=== PATIENT | male | born 1980 | race Caucasian/White ===

== ENCOUNTER 2025-08-06 22:07 | Emergency (ER) | payer BC, SELFPAY ==
--- OUTSIDE RECORDS SUMMARY | 2025-08-06 22:08 | XMS_ITS | Clinical Summary ---
Author Organization [facility] Address [address], [place] [address] Care Team Providers Care State Director Name Role Phone Unassigned, Provider Primary Care Provider Unava ilable Source Comments You are receiving this document as you are listed as the primary care provider,follow-up provider, or the patient has been referred to you for consultation.This is in compliance with the Medicare and[facility] EHR Incentive Program,which states Providers who transition their patient to another setting of careor provider of care or refers their patient to another provider of care shouldprovide summary care record for each transition of care or referral. [facility] Allergies No known active allergies Medications No known medications Active Problems ProblemNoted DateDiagnosed DateIncomplete tear of right rotator cuff08/07/2016 Overview (04/07/2017): Partial thickness right rotator cuff tear Chronic right shoulder pain07/04/2016 Overview (04/07/2017): Right shoulder weakness, cannot rule out progression of rotator cuff tear Biceps tendon tear07/04/2016 Social History Tobacco UseTypesPacks/DayYears UsedDateSmoking Tobacco: NeverSex and Gender InformationValueDate RecordedSex Assigned at BirthNot on fileLegal SexMale 05/25/2012 5:05 AM CDTGender IdentityNot on fileSexual OrientationNot on file Last Filed Vital Signs Vital SignReadingTime TakenCommentsBlood Pressure--Pulse--Temperature-- Respiratory Rate--Oxygen Saturation--Inhaled Oxygen Concentration--Xnchix058.3 kg (230 lb)07/01/2016 3:34 PM OFJWleari519.4 cm (6' 1)07/01/2016 3:34 PM FASHION ADVISER Body Mass Index30.34108/31/2015 3:34 PM FASHION ADVISER Plan of Treatment Health MaintenanceDue DateLast DoneCommentsColon Cancer Screening Plan Due 1978Hep C Screening (Preventive Services)1978HIV Screening (Preventive Services)1994Adult Preventive Visit1996DTaP/Tdap/Td Vaccine (1 - Tdap)1997HepB Vaccine (1)09/15/19973952Zzuqrrnzftq53/31/2014 COVID-19 Vaccine (1 - season)2025Influenza Vaccine (#1)2025 Zoster/Shingles Vaccine (1 of 2)2028HepA VaccineAged OutNo longer eligible based on patient's age to complete this topicHib VaccineAged OutNo longer eligible based on patient's age to complete this topicIPV (Polio) VaccineAged OutNo longer eligible based on patient's age to complete this topicMCV4 Vaccine Aged OutNo longer eligible based on patient's age to complete this topic Meningococcal B VaccineAged OutNo longer eligible based on patient's age to complete this topicPneumococcal VaccineAged OutNo longer eligible based on patient's age to complete this topic Insurance * Guarantor: El Flores TypeRelation to PatientDate of BirthPhone Billing AddressPersonal/SpqlywDdis74/31/1981 ([place]) [address] [place], [place] [id number] Care Teams Team MemberRelationshipSpecialtyStart DateEnd Date Unassigned, Provider [address] [place] [address] PCP - General10/25/00
--- OUTSIDE RECORDS SUMMARY | 2025-08-06 22:08 | XMS_ITS | Clinical Summary ---
Author Organization [employer] Address [address] [place] [address] Care Team Providers Care Recruitment Consultant Name Role Phone Emily Deluca MD Unavailable [phone] Giuseppe Martinez MD Unavailable [phone] Khushi Whitfield DO Primary Care Provider [phone] Allergies No known active allergies Medications MedicationSigDispense QuantityRefillsLast FilledStart DateEnd DateStatus loratadine/pseudoephedrine (ALLERGY RELIEF D ORAL) Take 1 Tablet by mouth once daily.Active fluticasone (50 mcg per actuation) nasal solution (FLONASE) Inhale 1 Dixon in both nostrils once daily.Active sodium chloride (OCEAN) 0.65 % nasal solution Indications:S/P transsphenoidal hypophysectomy (HC)Inhale 2 Sprays in both nostrils 2 times daily if needed for Nasal Dryness. 45 mL 11:27 PM CDT5Active hydrocortisone (CORTEF) 10 mg tablet Indications:Pituitary tumor,S/P transsphenoidal hypophysectomy (HC)Take 2 tablets (20 mg) by mouth in the morning. THEN take 1 tablet (10 mg) in the evening. 270 Tablet 04/29/2025 1:37 PM CDT5Active Additional Information Patient not taking.Reason: not currently, Reported on 08/02/2025 desmopressin (DDAVP) 0.1 mg tablet Indications:Diabetes insipidus (HC)Take 1 tablet (0.1 mg) in the morning, take 2 tablets (0.2 mg) at bedtime. Total 0.3 mg daily. 270 Tablet 04/30/2025 1:04 PM CDT5Active Additional Information Patient taking differently: 0.1 mg Oral BID, Take 1 tablet (0.1 mg) in the morning, take 2 tablets (0.2 mg) at bedtime. Total 0.3 mg daily., Reason: not currently, Reported on 08/02/2025 acetaminophen (TYLENOL EXTRA STRGTH) 500 mg tablet Indications:Acute post-operative painTake 1-2 Tablets (500-1,000 mg) by mouth every 6 hours if needed for Pain, Headache or Temp>101.5F (38.6C) (For mild pain.). Max acetaminophen dose: 4000mg in 24 hrs.5Active cabergoline (DOSTINEX) 0.5 mg tablet Indications:Macroprolactinoma (HC),Medication managementTAKE 2 TABLETS BY MOUTH DAILY 180 Tablet 5Active testosterone 1% (12.5mg/1.25g) (ANDROGEL) 12.5 mg/ 1.25 gram (1 %) glpm GEL Indications:Hypogonadism maleAPPLY TWO PUMPS TOPICALLY TO TO THE AFFECTED AREA ONCE DAILY TO SKIN ON UPPER ARM,CHEST,BACK 150 g 5Active testosterone 1% (12.5mg/1.25g) 12.5 mg/ 1.25 gram (1 %) glpm GEL Indications:Hypogonadism maleAPPLY TWO PUMPS TOPICALLY TO TO THE AFFECTED AREA ONCE DAILY TO SKIN ON UPPER ARM,CHEST,BACK 150 g Discontinued(Reorder (E-cancel not sent)) cabergoline (DOSTINEX) 0.5 mg tablet Indications:Macroprolactinoma (HC),Medication managementTAKE 2 TABLETS BY MOUTH DAILY 180 Tablet Discontinued(Reorder (E-cancel not sent)) Active Problems ProblemNoted DateDiagnosed DatePituitary tumor04/27/2025History of primary jpjaaxpugnaoixwmbwp50/27/2019 Overview (05/12/2019): s/p left superior parathyroidectomy 09/2018 Hypogonadism male07/29/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 3 month postop surveillance. Review 08/02/25 ANW, 04/26/25 [facility] MRI. All other comparisons were done [place] [facility] and are on AV.)08/02/2025 6:40 AM COMPENSATION/BENEFITS SPECIALIST - 08/02/2025 11:59 PM CSTHospital Encounter [facility] [address] [place], [place] [phone] Riana Martin NP S/P transsphenoidal hypophysectomy (HC)08/02/20255077Ynytxs11/06/2025Telephone [facility] [address] [place] [phone] Emily Deluca MD Prior Authorization (testosterone 1% (12.5mg/1.25g) (ANDROGEL) 12.5 mg/ 1.25 gram (1 %) glpm GEL PANOT NEEDED)07/16/2025Refill [facility] [address] [place] [phone] Emily Deluca MD Refill Request (testosterone 1% (12.5mg/1.25g) 12.5 mg/ 1.25 gram (1 %) glpm GEL/cabergoline (DOSTINEX) 0.5 mg tablet)06/13/2025 10:30 AM CDTOrders Only [facility] [address] [place] [address] [place] <No scans attached>06/13/20252839Medutv86/28/2025Telephone [facility] [address] [place] [phone] Emily Deluca MD Xwzgytv3706/07/2025Orders Only [facility] [address] [place] [phone] Emily Deluca MD <No scans attached>06/07/2025Telephone [facility] [address] [place] [phone] Emily Deluca MD 06/06/2025 1:30 PM CDTOrders Only [facility] [address] [place] [address] [place] Lab06/06/20253799Lrgncn78/14/2025 1:00 PM CDTOffice Visit [facility] [address] [facility] [address] [place] [address] Riana Martin NP Post-op (Clinic Appt S/p 04/27/25 Endoscopic transnasal hypophysectomy; possible lumbar drain and fat graft. 1 month f/u)05/28/2025 7:30 AM CDTOffice Visit [facility] [address] [place] [phone] Emily Deluca MD Follow Up (MEN1, Hyperprolactinemia, Macroprolactinoma, Hypogonadism Male, H/O Primary Hyperparathyroidism, Vitamin D Deficiency)05/28/20259834Czhoow33/26/2025 Orders Only [facility] Scanner 1 scan: (1-Ord) ENT SPECIALTY CARE, NASAL ENDOSCOPY, 5005/11/2025Orders Only [facility] Scanner 1 scan: (1-Ord) ENT SPEC CARE, NASAL ENDOSCOPY, 5005/09/2025Telephone [facility] Neuro[facility] [place] [address] [phone] 91 Giuseppe Martinez MD Formfrom Last 3 Months Immunizations ImmunizationAdministration DatesNext SwzZRM7710/21/1995Td (Age >=7 Years) 04/02/2005Td, Preservative Free (age >= 7 Years)04/02/2005Tdap09/20/2018 Family History Medical HistoryRelationNameCommentsHypertensionFatherOtherMaternal Grandfather bipolar diseaseRheum arthritisMotherOtherOtherleukemia in an auntDiabetes Paternal GrandmotherRelationNameStatusCommentsFatherMaternal GrandfatherMother OtherPaternal Grandmother Social History Tobacco UseTypesPacks/DayYears UsedDateSmoking Tobacco: NeverPassive Smoke Exposure: NeverSmokeless Tobacco: Never Tobacco Cessation:Counseling Given: Not Answered Alcohol UseStandard Drinks/WeekCommentsNot Currently0 (1 standard drink = 0.6 oz pure alcohol)nonePHQ-2AnswerDate RecordedPHQ-2 Uftqt847Social ConnectionsAnswerDate RecordedDo you often feel lonely or isolated from those around you?lcohol UseAnswerDate RecordedHow often do you have a drink containing alcohol?verage Number of DrinksNot on file 08/02/2025Frequency of Binge DrinkingNot on file08/02/2025Financial Resource StrainAnswerDate RecordedDifficulty of Paying Living Rypetneo798/27/2025 Difficulty of Paying Living ExpensesNot on file02/09/2025Food InsecurityAnswer Date RecordedDo you worry your food will run out before you are able to buy more?Transportation NeedsAnswerDate RecordedDoes lack of transportation keep you from medical appointments?Does lack of transportation keep you from work, meetings or getting things that you need?1 02/09/2025Housing StabilityAnswerDate RecordedWhat is your housing situation today?UtilitiesAnswerDate RecordedDo you have trouble paying for utilities (for example, heat, electricity, water, phone)?Sex and Gender InformationValueDate RecordedSex Assigned at BirthNot on fileLegal Sex Male08/29/2012 5:23 AM CSTGender IdentityNot on fileSexual OrientationNot on file Last Filed Vital Signs Vital SignReadingTime TakenCommentsBlood Pmelsous153/7408/02/2025 8:13 AM COMPENSATION/BENEFITS SPECIALIST Favhq857808/02/2025 8:13 AM HZIRudgdmkxjce33.6 ??C (97.9 ??F)08/02/2025 8:13 AM CSTRespiratory Oikv961608/02/2025 8:13 AM CSTOxygen Skbibirkqc82%08/02/2025 8:13 AM CSTInhaled Oxygen Concentration--Rzxwnw793.3 kg (245 lb 6.4 oz)08/02/2025 8:13 AM QXHWuatis406.4 cm (6' 1)08/02/2025 8:13 AM CSTBody Mass Index32.38 08/02/2025 8:13 AM COMPENSATION/BENEFITS SPECIALIST Plan of Treatment DateTypeDepartmentCare Team (Latest Contact Info)Chxanysmsbo84/13/2026 7:30 AM CDTOffice Visit [facility] [address] [place] [phone] Emily Deluca MD [address] [place] [address] Health MaintenanceDue DateLast DoneCommentsHIV for age 15-Hepatitis C screening for age 18-7909/15/1996Hepatitis B series for 19+ (1 of 3 - 19+ 3- dose series)1997Depression screening for age 12+, 08/21/2015Colonoscopy through age 750/4COVID-19 vaccine series ( - 2024- season)2025Influenza Vaccine (#1)5BMI (ht and wt on same day) for age 18+6110/03/2024, 05/29/2025, 02/09/2025, Additional history existsLipids for age 45-7507/, 06/20/2018Tetanus booster , 04/02/2005, 04/02/2005Pneumococcal series for age 6-49Aged OutNo longer eligible based on patient's age to complete this topic Medical Devices ImplantedTypeAreaManufacturerDevice IdentifierShelf Expiration DateModel / Serial / LotGraft Dural 1x1in Duramatrix Suturable Bovine - [id number] Implanted:Qty: 1 on 04/27/2025 by Giuseppe Martinez MD at [facility] Zlfevgcbprezykvmyjg29/31/[id number] / / [id number] Procedures Procedure NamePriorityDate/TimeAssociated DiagnosisCommentsMR HEAD BRAIN PITUITARY PVTAkdtjuv87/18/2025 7:57 AM COMPENSATION/BENEFITS SPECIALIST S/P transsphenoidal hypophysectomy (HC) SODIUMAdd On06/13/2025 10:24 AM CDT Hypernatremia CORTISOL TJUVIRzfipkn42/29/2025 10:24 AM CDT Macroprolactinoma (HC) Medication management SODIUMAdd On06/06/2025 1:37 PM CDT Macroprolactinoma (HC) Medication management CORTISOL LBVUUVweqdez02/22/2025 1:37 PM CDT Macroprolactinoma (HC) Medication management BASIC METABOLIC CYUXXIsvnety87/13/2025 8:17 AM CDT Macroprolactinoma (HC) Medication management VGBAJBWKJIjmikkh97/13/2025 8:17 AM CDT Hyperprolactinemia (HC) Macroprolactinoma (HC) Medication management EAJQxmhcul64/13/2025 8:17 AM CDT Macroprolactinoma (HC) TESTOSTERONE,KENCEXwiiifq80/13/2025 8:17 AM CDT Macroprolactinoma (HC) Hypogonadism male Medication management T4,LGPOAtjillx18/13/2025 8:17 AM CDT Macroprolactinoma (HC) SCAN-RIAGVYJCP21/26/2025 12:00 AM CDT SCAN-FDLXSMSWQ68/26/2025 12:00 AM CDT LIPID OVTPMWlyrdqq89/24/2022 8:15 AM CDT Hypogonadism male Macroprolactinoma (HC) Medication management from Last 3 Months or Most Recently Relevant to Health Maintenance Results * MR HEAD BRAIN PITUITARY WWO (08/02/2025 7:57 AM COMPENSATION/BENEFITS SPECIALIST)Anatomical Region LateralityModalityBRAIN, HEADMagnetic ResonanceSpecimen (Source)Anatomical Location / LateralityCollection Method / VolumeCollection TimeReceived Time 08/02/2025 11:54 AM COMPENSATION/BENEFITS SPECIALIST Impressions 08/02/2025 11:54 AM COMPENSATION/BENEFITS SPECIALIST 1. 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 The infundibulum remains visualized and deviated slightly towards the left. Optic chiasm remains decompressed. 2. Remainder of the extensive tumor is unchanged. 3. Notable stable tumor extending into the right jugular foramen. Stable nonocclusive small fillingdefect at the confluence of the right sigmoid dural venous sinus and jugular vein which may represent chronic thrombus or extension of tumor. 4. No new abnormal enhancement elsewhere Dictated by Jr Ventura MD @ 08/02/2025 11:54:35 AM (Electronically Signed) Narrative 08/02/2025 11:54 AM COMPENSATION/BENEFITS SPECIALIST For Patients: As a result of the Cures Act, medical imaging exams and procedure reports are released immediately into your electronic medical record. You may view this report before your referring provider. If you have questions, please contact your health care provider. INDICATION: Pituitary tumor. Status post and sphenoidal hypo facetectomy. COMPARISON: 04/27/2025 and 04/26/2025. TECHNIQUE: Multiplanar T1, T2, FLAIR and diffusion-weighted imaging. Post gadolinium T1 weighted sequences. Additional pre and post them sequences of the sella. FINDINGS: Compared to the previous exam, stable postoperative changes of transsphenoidal approach for partialresection of a giant invasive sellar and suprasellar mass. As seen on the intraoperative exam, there is stable the bulk of the sellar suprasellar component of the tumor. The optic chiasm remains decompressed. Infundibulum is visualized and deviated slightly towards the left. Anteriorly, small amount of residual tumor which abuts the right pre chiasmatic optic nerve. Stable extensive tumor extending into the bilateral cavernous sinuses, posterior sphenoid sinuses, pre pontine cistern, clivus, and occipital condyles. There is abutment but no encasement of the basilar artery. Complete encasement of the cavernous segments of both intracranial ICAs but no evidence of luminal narrowing. Stable focal extension of tumor along the medial left temporal lobe with peritumoral cystic change. Tumor extends across foramen ovale bilaterally into the skullbase. Anteriorly, tumor also extends into the orbital apices and bilateral pterygopalatine fossa, greateron the right. Tumor also extends into the right jugular foramen. There is notable stable nonocclusive filling defect at the confluence of the right sigmoid dural venous sinus and jugular vein (series 14, images 201-35; series 16, image 35) consistent with thrombus or tumor extension. No new abnormal enhancement or enhancing lesions elsewhere. No intracranial hemorrhage. No abnormal ventricular dilatation. Intracranial vascular flow voids are grossly preserved. No restricted diffusion to suggest acute ischemia. No new abnormal enhancement or enhancing lesions within the brain parenchyma. Visualized paranasal sinuses mastoid air cells are unremarkable. Procedure Note Jr Ventura MD, PhD - 08/02/2025 For Patients: As a result of the Cures Act, medical imagingexams and procedure reports are released immediately into your electronicmedical record. You may view this report before your referring provider.If you have questions, please contact your health care provider. INDICATION: Pituitary tumor. Status post and sphenoidal hypo facetectomy. COMPARISON: 04/27/2025 and 04/26/2025. TECHNIQUE: Multiplanar T1, T2, FLAIR and diffusion-weighted imaging. Post gadoliniumT1 weighted sequences. Additional pre and post them sequences of thesella. FINDINGS: Compared to the previous exam, stable postoperative changes oftranssphenoidal approach for partial resection of a giant invasive sellarand suprasellar mass. As seen on the intraoperative exam, there is stablethe bulk of the sellar suprasellar component of the tumor. The opticchiasm remains decompressed. Infundibulum is visualized and deviatedslightly towards the left. Anteriorly, small amount of residual tumorwhich abuts the right pre chiasmatic optic nerve. Stable extensive tumor extending into the bilateral cavernous sinuses,posterior sphenoid sinuses, pre pontine cistern, clivus, and occipitalcondyles. There is abutment but no encasement of the basilar artery. Complete encasement of the cavernous segments of both intracranial ICAsbut no evidence of luminal narrowing. Stable focal extension of tumor along the medial left temporal lobe with peritumoral cystic change. Tumor extends across foramen ovale bilaterally into the skullbase. Anteriorly, tumor also extends into the orbital apices and bilateral pterygopalatine fossa, greater on the right. Tumor also extends into the right jugular foramen. There is notable stable nonocclusive filling defect at the confluence of the right sigmoid duralvenous sinus and jugular vein (series 14, images 20 1-35; series 16, image35) consistent with thrombus or tumor extension. No new abnormal enhancement or enhancing lesions elsewhere. No intracranial hemorrhage. No abnormal ventricular dilatation.Intracranial vascular flow voids are grossly preserved. No restricted diffusion to suggest acute ischemia. No new abnormal enhancement or enhancing lesions within the brainparenchyma. Visualized paranasal sinuses mastoid air cells are unremarkable. IMPRESSION: 1. 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 The infundibulumremains visualized and deviated slightly towards the left. Optic chiasmremains decompressed. 2. Remainder of the extensive tumor is unchanged. 3. Notable stable tumor extending into the right jugular foramen. Stable nonocclusive small filling defect at the confluence of the right sigmoiddural venous sinus and jugular vein which may represent chronic thrombusor extension of tumor. 4. No new abnormal enhancement elsewhere Dictated by Jr Ventura MD @ 08/02/2025 11:54:35 AM (Electronically Signed) Authorizing ProviderResult TypeResult StatusAlicietienne Martin NPMRFinal Result * CORTISOL TOTAL (06/13/2025 10:24 AM CDT) Only the most recent of2 resultswithin the time period is included. ComponentValueRef RangeTest MethodAnalysis TimePerformed AtPathologist Signature CORTISOL, TOTAL21.2mcg/dL06/14/2025 5:14 AM CDTQUEST DIAGNOSTICSComment: The Cortisol result may be decreased on average 10-20% relative to results previously obtained with this method due to a recent quality improvement made in March 2025 by the reagent miter saw operator. Reference Range: For 8 a.m.(7-9 a.m.) Specimen: 4.0-22.0 Reference Range: For 4 p.m.(3-5 p.m.) Specimen: 3.0-17.0 ??* Please interpret above results accordingly * Specimen (Source)Anatomical Location / LateralityCollection Method / Volume Collection TimeReceived TimeBloodBLOOD SPECIMEN / UnknownQuest Collect / Unknown 06/13/2025 10:24 AM CDT1 10:24 AM CDT Narrative Authorizing ProviderResult TypeResult StatusEmily Deluca MDCHEMISTRY Final ResultPerforming OrganizationAddressCity/State/ZIP CodePhone Number [facility] [address] [place] [address], * SODIUM (06/13/2025 10:24 AM CDT) Only the most recent of2 resultswithin the time period is included. ComponentValueRef RangeTest MethodAnalysis TimePerformed AtPathologist Signature [id number] - 146 mmol/L1 2:16 AM CDTQUEST DIAGNOSTICSSpecimen (Source)Anatomical Location / LateralityCollection Method / VolumeCollection TimeReceived TimeBloodBLOOD SPECIMEN / UnknownQuest Collect / Uijsnnr5206/13/2025 10:24 AM CDT1 10:24 AM CDT Narrative Authorizing ProviderResult TypeResult StatusEmily Deluca MDCHEMISTRY Final ResultPerforming OrganizationAddressty/State/ZIP CodePhone Number [facility] [address] [place] [address], [place] [phone] * TSH (05/28/2025 8:17 AM CDT)ComponentValueRef RangeTest MethodAnalysis Time Performed AtPathologist SignatureTSH0.790.40 - 4.50 mIU/L1 6:03 AM CDTQUEST DIAGNOSTICSSpecimen (Source)Anatomical Location / Laterality Collection Method / VolumeCollection TimeReceived TimeBloodBLOOD SPECIMEN / UnknownQuest Collect / Kakimxl5005/28/2025 8:17 AM CDT1 8:17 AM CDT Narrative Authorizing ProviderResult TypeResult StatusEmily Deluca MDCHEMISTRY Final ResultPerforming OrganizationAddressCity/State/ZIP CodePhone Number [facility] [address] [place] [address], [place] [phone] * T4,FREE (05/28/2025 8:17 AM CDT)ComponentValueRef RangeTest MethodAnalysis TimePerformed AtPathologist SignatureT4, FREE1.00.8 - 1.8 ng/dL05/29/2025 6:03 AM CDTQUEST DIAGNOSTICSSpecimen (Source)Anatomical Location / Laterality Collection Method / VolumeCollection TimeReceived TimeBloodBLOOD SPECIMEN / UnknownQuest Collect / Gxikqul4905/28/2025 8:17 AM CDT1 8:17 AM CDT Narrative Authorizing ProviderResult TypeResult StatusEmily Deluca MDCHEMISTRY Final ResultPerforming OrganizationAddressty/State/ZIP CodePhone Number [facility] [address] [place] [address], * (ABNORMAL) TESTOSTERONE,TOTAL (05/28/2025 8:17 AM CDT)ComponentValueRef Range Test MethodAnalysis TimePerformed AtPathologist SignatureTESTOSTERONE, TOTAL, MS47(L)250 - 1100 ng/dL06/01/2025 1:43 PM CDTQUEST DIAGNOSTICSComment: Men with clinically significant hypogonadal symptoms and testosterone values repeatedly in the range of the 200-300 ng/dL or less, may benefit from testosterone treatment after adequate risk and benefits counseling. For additional information, please refer to https://education.uromovie/faq/TotalTestosteroneLCMSMS (This link is being provided for informational/educational purposes only.) (Note) This test was developed and its analytical performance characteristics have been determined by [employer]. It has not been cleared or approved by the FDA. This assay has been validated pursuant to the CLIA regulations and is used for clinical purposes. [facility] [address] [address],[address] [facility] [address] Kalen Pereira MD, PhD Specimen (Source)Anatomical Location / LateralityCollection Method / Volume Collection TimeReceived TimeBloodBLOOD SPECIMEN / UnknownQuest Collect / Unknown 05/28/2025 8:17 AM CDT1 8:17 AM CDT Narrative Authorizing ProviderResult TypeResult StatusEmily Deluca MDCHEMISTRY Final ResultPerforming OrganizationAddressCity/State/ZIP CodePhone Number [facility] [facility] [address], * (ABNORMAL) PROLACTIN (05/28/2025 8:17 AM CDT)ComponentValueRef RangeTest MethodAnalysis TimePerformed AtPathologist YtfuipovcEWMWNULXL46339.0(H)2.0 - 18.0 ng/mL05/30/2025 4:13 PM CDTQUEST DIAGNOSTICSComment: Results verified by repeat analysis on dilution. Specimen (Source)Anatomical Location / LateralityCollection Method / Volume Collection TimeReceived TimeBloodBLOOD SPECIMEN / UnknownQuest Collect / Unknown 05/28/2025 8:17 AM CDT1 8:17 AM CDT Narrative Authorizing ProviderResult TypeResult StatusEmily Deluca MDSEND OUTS Final ResultPerforming OrganizationAddressCity/State/ZIP CodePhone Number [facility] [address] [place] [address], * (ABNORMAL) BASIC METABOLIC PANEL (05/28/2025 8:17 AM CDT)ComponentValueRef RangeTest MethodAnalysis TimePerformed AtPathologist DqdxygmlqPHWQGY829846 - 146 mmol/L1 4:24 AM CDTQUEST DIAGNOSTICSPOTASSIUM4.13.5 - 5.3 mmol/L 05/29/2025 4:24 AM CDTQUEST DIAGNOSTICSCARBON GPJYBGY2450 - 32 mmol/L 05/29/2025 4:24 AM CDTQUEST LHMYZKBUNMQKRJXWJK260(H)65 - 99 mg/dL05/29/2025 4:24 AM CDTQUEST DIAGNOSTICSComment: ? Fasting reference interval For someone without known diabetes, a glucose value between 100 and 125 mg/dL is consistent with prediabetes and should be confirmed with a follow-up test. CALCIUM9.28.6 - 10.3 mg/dL05/29/2025 4:24 AM CDTQUEST DIAGNOSTICSCREATININE0.99 0.60 - 1.29 mg/dL05/29/2025 4:24 AM CDTQUEST DIAGNOSTICSBUN/CREATININE RATIOSEE NOTE:6 - 22 (calc)05/29/2025 4:24 AM CDTQUEST DIAGNOSTICSComment: ?? Not Reported: BUN and Creatinine are within ?? reference range. ? EGFR95> OR = 60 mL/min/1.27x08605/29/2025 4:24 AM CDTQUEST DIAGNOSTICSUREA NITROGEN (BUN)127 - 25 mg/dL05/29/2025 4:24 AM CDTQUEST DIAGNOSTICSELECTROLYTE MKLUFIW84 - 17 mmol/L (calc)05/29/2025 4:24 AM CDTQUEST IAYGZQMVJDTOOYEUVFK69898 - 110 mmol/L1 4:24 AM CDTQUEST DIAGNOSTICSSpecimen (Source)Anatomical Location / LateralityCollection Method / VolumeCollection TimeReceived TimeBlood BLOOD SPECIMEN / UnknownQuest Collect / Wbkkjqi9405/28/2025 8:17 AM CDT1 8:17 AM CDT Narrative Authorizing ProviderResult TypeResult StatusAnne Macy Deluca MDCHEMISTRY Final ResultPerforming OrganizationAddressCity/State/ZIP CodePhone Number [facility] [place] [facility] [address], * SCAN-ENDOSCOPY (05/11/2025 12:00 AM CDT) Narrative Authorizing ProviderResult TypeResult StatusScannerOTHERFinal Result * SCAN-ENDOSCOPY (05/11/2025 12:00 AM CDT) Narrative Authorizing ProviderResult TypeResult StatusScannerOTHERFinal Result * (ABNORMAL) LIPID PANEL (04/08/2022 8:15 AM CDT)ComponentValueRef RangeTest MethodAnalysis TimePerformed AtPathologist SignatureCHOLESTEROL,[id number] - 199 mg/dL04/08/2022 5:22 PM [facility] NUUTVKRAPJSWC115(H)<150 mg/dL04/08/2022 5:22 PM [facility]- [facility] LABORATORYHDL EJVAXCYUSTB39(L)>40 mg/dL04/08/2022 5:22 PM [facility]-CENTRAL LABORATORYNON-HDL [id number](H)<145 mg/dl 04/08/2022 5:22 PM [facility]CENTR[facility] LABORATORYCHOL/HDL RATIO5.70(H)<4.50004/08/2022 5:22 PM [facility] LABORATORYLDL JQXPYACFNKL41<=130 mg/dL04/08/2022 5:22 PM [facility]-CENTRAL LABORATORYVLDL CRTHBNYXSQL76(H)<=30 mg/dL04/08/2022 5:22 PM [facility]-CENTRAL LABORATORYPROVIDER ORDERED STATUSRANDOM 04/08/2022 5:22 PM [facility]ENTRAL LABORATORYSpecimen (Source)Anatomical Location / LateralityCollection Method / VolumeCollection TimeReceived TimeBloodBLOOD SPECIMEN / UnknownVenipuncture / Txxpyqm7304/08/2022 8:15 AM CDT04/08/2022 8:21 AM CDT Narrative Authorizing ProviderResult TypeResult StatusEmily Deluca MDCHEMISTRY Final ResultPerforming OrganizationAddressCity/State/ZIP CodePhone Number [facility] [address] [place] [address], from Last 3 Months or Most Recently Relevant to Health Maintenance Insurance * Guarantor: MARIBETH Mcintosh TypeRelation to PatientDate of PhoneBilling AddressOhio[facility]/OussKptwc12/29/1971 [place] [address] Advance Directives * Full Code (Latest Code Status on File) Date ActivatedDate InactivatedComments04/27/2025 7:02 AM04/30/2025 3:57 PMQuestion AnswerCommentsCode Status Discussion:* Reviewed Preferences * Full Code Date ActivatedDate InactivatedComments09/28/2018 5:34 AM09/28/2018 1:21 PMQuestion AnswerCommentsCode Status Discussion:* Discussed Care Teams Team MemberRelationshipSpecialtyStart DateEnd Date Nahid, Khushi DO Ariella [address] [place] [address] [facility] Emily Deluca MD Endocrinology04/08/15 Giuseppe Martinez MD [address] [address] Surgery - Neurological12/20/23
--- OUTSIDE RECORDS SUMMARY | 2025-08-06 22:09 | XMS_ITS | Patient Health Record ---
Author Organization [facility] Address [address] [place] [address] Phone [phone] Care Team Providers Care Professional Athlete Name Role Phone Khushi Whitfield Primary Care Provider Unavailalbaro MCNEIL MD, VITO Unavailable Giuseppe Martinez Unavailable Unavailable Dominic Guy, [facility]AVan Unavailable [phone] Allergies No Known Allergies Reason For Referral No Information Medications Medication SIG (Take, Route, Frequency, Duration) Notes Start Date End Date Diagnosis (ICD Code) Status Flonase 50 MCG/DOSE Suspension 2 spray i n each nostril Nasally Once a day; Duration: 30 days 5Chronic rhinitis (ICD_10 - J31.0)Not-TakingDeep Sea Nasal [place] 0.65 % SolutionNasal; Duration: 30 DaysActiveCabergoline 0.5 MG TabletOral; Duration: 88 DaysActive Social History Tobacco Use: Social History Observation Description Date Details (start date - stop date) Never Smoker NA - NA Sex Observation Social History Observation Description Sex Observation Male Social History Tobacco Use:Social InfoQuestionAnswerNotesTobacco Control (Standard)Tobacco use: Nonsmoker Problems Problem Type SNOMED Code ICD Code Dates Problem Status W/U Sta tus Risk Notes Problem Chronic rhinitis (80791801) Chronic rhinitis (J31.0) Added On:04/04/2025 Active confirmed ProblemSensorineural hearing loss, bilateral (160083377)Bilateral sensorineural hearing loss (H90.3) Added On:04/04/2025 ActiveconfirmedProblemPituitary tumor (937290310)Pituitary tumor (D49.7) Added On:04/04/2025 ActiveconfirmedProblemPituitary adenoma (529626979)Pituitary adenoma (D35.2) Added On:05/14/2025 Activeconfirmed Vital Signs Vital Sign Value Notes Appt Date Height-cm 185.42 cm 05/11/2025Weight-kg108.86 kg05/11/20250740Wshwdj83 in05/11/20251662Ogfjrv928 lbs 05/11/2025BMI31.66 kg/m205/11/2025 Procedures Procedure Date Ordered Date Performed Result Body Sit e Surgery 05/02/2025 04/27/2025 04-27-25 Encounters Date Time Type Facility Location Provider Diagnosis 04/04/20 02:45 PM New Patient Visit Complex ([address]) [facility] [place] [address] [place] [address] VITO KHABIE Pituitary tumor D49.7 ; Chronic rhinitis J31.0 and Bilateral sensorineural hearing loss H90.3 04/04/20 03:00 PM Office Visit [facility] [place] [address] [facility] [address] [place] [address] Van Buttinaro Pituitary tumor D49.7 and Bilateral sensorineural hearing loss H90.3 04/27/20 08:45 AM Office Visit [facility] [address] [place], [place] [id number] VITO KIERSTENABIE 502:15 PMOffice VisitEar [facility] [place] [address]BCGOIK KHABIE Pituitary tumor D49.7 Assessments Encounter Date Diagnosis (ICD Code) Assessment Notes Treat ment Notes Section Notes 04/04/2025 Pituitary tumor (ICD-10 - D49.7) Patient has a large pituitary tumor, prolactinoma, 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 At this point he is scheduled for surgery with Dr. Martinez in a few weeks. We discussed in detail the risk, benefits and alternativesof surgery as well as reasonable expectations, understand our goal is to debulk the tumor and is unlikely to get gross resection. He understands that there is risk to the carotid arteries optic nerves, etc. we also discussed nosebleeds etc. He does have a deviated septum I do not think we will haveto deal with that if we do would have to leave splints in place as well. He also has history of chronic rhinitis and medical had started on some Flonase so we can discuss at that topping or not when I see him with the postop. Finally he does have significant bilateral sensorineural hearing loss was very obvious during examination today, strongly recommend consideration of hearing aids and he was given information regarding that as well. If he has further problems he will let me know otherwise I will see him in a few weeks 04/04/2025ilateral sensorineural hearing loss (ICD-10 - H90.3)04/04/2025 Pituitary tumor (ICD-10 - D49.7)05/11/2025Pituitary tumor (ICD-10 - D49.7) Patient doing well postoperatively, he will continue on the saline nasal spray several times a day,avoid nose blowing for another week or so. If he has further problems he will let me know. Recall previously was having issues with chronic rhinitis he can go ahead and start the Flonase again now. Francisco just see him back as xhhdna8204/04/2025hronic rhinitis (ICD-10 - J31.0) Patient has a large pituitary tumor, prolactinoma, 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 At this point he is scheduled for surgery with Dr. Martinez in a few weeks. We discussed in detail the risk, benefits and alternativesof surgery as well as reasonable expectations, understand our goal is to debulk the tumor and is unlikely to get gross resection. He understands that there is risk to the carotid arteries optic nerves, etc. we also discussed nosebleeds etc. He does have a deviated septum I do not think we will haveto deal with that if we do would have to leave splints in place as well. He also has history of chronic rhinitis and medical had started on some Flonase so we can discuss at that topping or not when I see him with the postop. Finally he does have significant bilateral sensorineural hearing loss was very obvious during examination today, strongly recommend consideration of hearing aids and he was given information regarding that as well. If he has further problems he will let me know otherwise I will see him in a few weeks 04/04/2025ilateral sensorineural hearing loss (ICD-10 - H90.3) Patient has a large pituitary tumor, prolactinoma, 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 At this point he is scheduled for surgery with Dr. Martinez in a few weeks. We discussed in detail the risk, benefits and alternativesof surgery as well as reasonable expectations, understand our goal is to debulk the tumor and is unlikely to get gross resection. He understands that there is risk to the carotid arteries optic nerves, etc. we also discussed nosebleeds etc. He does have a deviated septum I do not think we will haveto deal with that if we do would have to leave splints in place as well. He also has history of chronic rhinitis and medical had started on some Flonase so we can discuss at that topping or not when I see him with the postop. Finally he does have significant bilateral sensorineural hearing loss was very obvious during examination today, strongly recommend consideration of hearing aids and he was given information regarding that as well. If he has further problems he will let me know otherwise I will see him in a few weeks Plan Of Treatment No Information Insurance Providers Payer Name Payer Address Payer Phone Subscriber Number Group Number Insured Name Patient Relationship to Insured Coverage Start Date Coverage End Date [place] [address] [address] [place] [address] [id number] El Flores Self - patient is the insured
[2025-08-06 22:23] VITALS: BP 163/91; PULSE 89; RESP 24; TEMP 36.7; O2SAT 98; BMI 32.2
--- NOTE | 2025-08-06 22:47 | CRLHL7_ITS ---
For Patients: As a result of the Century Cures Act, medical imaging exams and procedure reports are released immediately into your electronic medical record. You may view this report before your referring provider. If you have questions, please contact your health care provider. INDICATION: Right flank pain. TECHNIQUE: CT abdomen and pelvis without contrast. COMPARISON: None. FINDINGS: Lower chest: Unremarkable. Liver: Normal in size and attenuation. No suspicious masses. Gallbladder and bile ducts: No stones or inflammation. No biliary dilatation. Pancreas: Unremarkable. No mass or inflammation. Spleen: Normal in size. No masses. Adrenal glands: Normal in size. No nodules. Kidneys: Punctate nonobstructing left nephrolith. 3 mm stone at the right uterovesicular junction with associated mild proximal hydroureteronephrosis. No left-sided hydronephrosis. No suspicious mass. GI tract: Unremarkable. Normal in caliber. No sign of mass or inflammation. Normal appendix. Vasculature: Abdominal aorta is normal in caliber. Lymph nodes: No lymphadenopathy. Peritoneum/Abdominal Wall: Small fat-containing umbilical hernia. No free air or significant free fluid. Pelvis: Unremarkable. No pelvic masses. Bones: Unremarkable for age. IMPRESSION: 3 mm stone at the right ureterovesicular junction with associated mild proximal hydroureteronephrosis. Please note that all CT scans at this facility use dose modulation, iterative reconstruction, and/or weight-based dosing when appropriate to reduce radiation dose to as low as reasonably achievable. Dictated by Giuseppe Brown MD @ 08/07/2025 12:20:37 AM (Electronically Signed)
--- NOTE | 2025-08-06 22:47 | ED.GENADULT ---
HPI - General Adult General Date Seen: 08/06/25 Chief complaint: Flank Pain Stated complaint: possible kidney stone Time Seen by Provider: 08/06/25 22:44 Source: patient, family and RN notes reviewed Mode of arrival: ambulatory Limitations: no limitations History of Present Illness HPI narrative: Mr. Flores is a very pleasant 44-year-old gentleman with known history of kidney stones, recent surgery for debulking of brain tumor who comes to the emergency room with complaints of right flank and right lower quadrant pain. Patient notes the onset of this earlier this evening right suddenly. It is associated with vomiting and difficulty finding a comfortable position. Notes that leading up to this pain he did have intermittent episodes of urinary urgency. He did not see blood in his urine. He has not had fever or chills. Moving around seems to help his pain somewhat. Initially the pain was in his right flank it is now migrated down to his right lower quadrant. Related Data Home Medications ?Medication ?Instructions ?Recorded ?Confirmed cabergoline 0.5 mg tablet 1.5 mg PO DAILY 05/18/22 08/06/25 Previous Rx's ?Medication ?Instructions ?Recorded hydrocodone 5 mg-acetaminophen 325 1 tab PO Q4-6H PRN pain #10 tabs 08/07/25 mg tablet tamsulosin 0.4 mg capsule 0.4 mg PO DAILY #14 caps 08/07/25 Allergies Allergy/AdvReac Type Severity Reaction Status Date / Time No Known Drug Allergies Allergy Verified 08/06/25 22:30 Review of Systems Status of ROS: Reports: 6 or more systems reviewed and unremarkable except as noted in History and below Const: Denies: fever or chills Cardio: Denies: chest pain Resp: Denies: cough GI: Reports: abdominal pain, nausea, vomiting and heartburn; Denies: diarrhea or constipation : Reports: urinary frequency and urinary urgency; Denies: painful urination or blood in urine Musculo: Reports: back pain PFSH PFSH Social History Smoking Status: Never smoker Exam Narrative: Exam Narrative: Alert and oriented. Frustrated with his discomfort. External ears eyes nose clear. Mentation and speech is normal. Heart with regular rate and rhythm and lungs are clear. Abdomen is soft. Positive for CVA tenderness to percussion. Moving all extremities. Const: Vital Signs, click to edit/add: Vital Signs - 24 hr 08/06/25 22:23 Temperature 98.0 F Pulse Rate [Pulse Oximeter] 89 Respiratory Rate 24 Blood Pressure [Ri ght Upper Arm] 163/91 H Pulse Oximetry 98 Oxygen Delivery Me thod Room Air Documenting provider has reviewed patient's vital signs: yes Course Course ED Course: Differential diagnosis includes but is not limited to ureteral colic/nephrolithiasis, pyelonephritis, muscular strain. At this time will order IV, Toradol 15 mg morphine 4 mg and Zofran 4 mg as well as 500 mL of normal saline. Will check CBC and comprehensive panel. Urinalysis is also ordered at this time. Reevaluation(s) Reevaluation #1: Due to high ED volume patient was seen in the hallway. He is pacing very frustrated and I do find nursing staff to try to place IV is quickly as possible. Patient appears much improved after medications. Reevaluation #2: CT shows a 3 mm stone at the right UVJ. Mild hydro is noted. Patient's pain appears to be coming back. Will give him Dilaudid 0.5 mg IV x1. Currently awaiting urinalysis as he has had recent indwelling catheter during surgery for pituitary adenoma. This was removed prior to discharge. Vital Signs Vital signs: Initial Vital Signs Temperature 98.0 F 08/06/25 22:23 Temperature Source Temporal Artery Scan 08/06/25 22:23 Pulse Rate 89 08/06/25 22:23 Respiratory Rate 24 08/06/25 22:23 Blood Pressure 163/91 H 08/06/25 22:23 Blood Pressure Mean 115 H 08/06/25 22:23 Blood Pressure Position Sitting 08/06/25 22:23 Pulse Oximetry 98 08/06/25 22:23 Oxygen Delivery Method Room Air 08/06/25 22:23 Vital Signs Temperature 98.0 F 08/06/25 22:23 Pulse Rate 89 08/06/25 22:23 Respiratory Rate 24 08/06/25 22:23 Blood Pressure 163/91 H 08/06/25 22:23 Pulse Oximetry 98 08/06/25 22:23 Oxygen Delivery Method Room Air 08/06/25 22:23 Temperature 98.0 F 08/06/25 22:23 Pulse Rate 89 08/06/25 22:23 Respiratory Rate 24 08/06/25 22:23 Blood Pressure 163/91 H 08/06/25 22:23 Pulse Oximetry 98 08/06/25 22:23 Oxygen Delivery Method Room Air 08/06/25 22:23 Medications Administered Medications: Generic Name Dose Route Start Last Admin Trade Name Freq PRN Reason Stop Dose Admin Hydromorphone HCl 0.5 mg 08/07/25 00:35 08/07/25 00:51 Hydromorphone 0.5 Mg/0.5 Ml Inj IVP 08/07/25 00:36 0.5 mg ONCE ONE Administration Tamsulosin HCl 0.4 mg 08/07/25 00:41 08/07/25 01:02 Tamsulosin Hcl 0.4 Mg Capsule PO 08/07/25 00:42 0.4 mg ONCE ONE Administration Discontinued Medications Generic Name Dose Route Start Last Admin Trade Name Freq PRN Reason Stop Dose Admin Sodium Chloride 500 mls @ 500 mls/hr 08/06/25 22:47 08/07/25 00:15 0.9 % Sodium Chloride 500 Ml IV 08/06/25 23:46 Infused .Q1H CORNELIUS Infusion Ketorolac Tromethamine 15 mg 08/06/25 22:47 08/06/25 23:13 Ketorolac 15 Mg/Ml Inj IVP 08/06/25 22:48 15 mg ONCE ONE Administration Morphine Sulfate 4 mg 08/06/25 22:47 08/06/25 23:13 Morphine 4 Mg/Ml Inj IVP 08/06/25 22:48 4 mg ONCE ONE Administration Ondansetron HCl 4 mg 08/06/25 22:47 08/06/25 23:13 Ondansetron 2 Mg/Ml Inj IVP 08/06/25 22:48 4 mg ONCE ONE Administration Medical Decision Making MDM Narrative Medical decision making narrative: 1. Ureteral colic with nephrolithiasis-patient noted to have a 3 mm stone at the right UVJ. Mild hydro is noted. Urinalysis without evidence of UTI but will be sent for culture as patient has had recent catheter after surgery. Patient had Toradol, morphine and last dose of pain medicine was delighted. Is feeling much better. No evidence of further vomiting in the ED after receiving Zofran. Patient will be discharged home with Toradol 10 mg Q 8 hours p.r.n. not to exceed 5 days 20. Via instant meds. For pain not relieved by Toradol we will use [place] 5/325 1-2 tabs p.o. Q 6 4-6 hours p.r.n. pain 10. Unfortunately this was not in our [facility] med[facility] machine and thus this prescription was sent to the pharmacy. In lieu of [place] will use Percocet 5/325 1 tab p.o. Q 4-6 hours p.r.n. 4. In instant meds. Finally Zofran 4 mg ODT q.8 hours p.r.n. 10. With no refills. Flomax ordered in the ED but declined by patient at this time. He will take it when he gets home. Additional Flomax 0.4 mg p.o. daily 14. Sent to the pharmacy. 2. Disposition-home at this time. Return for worsening symptoms and as needed especially fever. Strain urine. If pain continues and stone has not passed will need to follow-up with primary clinic for referral to Urology. Medical Records Medical records reviewed: Yes I reviewed the patient's medical records Lab Data Lab results reviewed: Yes I reviewed the patient's lab results Labs: Lab Results 08/06/25 08/07/25 Range/Units 23:00 00:19 WBC 10.88 (4.50-11.00) K/uL RBC 4.91 (4.30-5.90) m/uL Hgb 13.2 L (13.5-17.5) gm/dL Hct 40.5 (37.0-53.0) % MCV 83 (80-100) fL MCH 27 (26-34) pg MCHC 33 (32-36) gm/dL RDW Coeff of Real 14.4 (11.5-15.5) % Plt Count 307 (140-440) K/uL Neut % (Auto) 66.6 (42.0-72.0) % Lymph % (Auto) 23.0 (20-44) % Frederick % (Auto) 8.8 (0.0-11.0) % Eos % (Auto) 0.8 (0.0-7.0) % Baso % (Auto) 0.2 (0.0-3.0) % Neut # (Auto) 7.24 H (1.7-7.0) K/uL Lymph # (Auto) 2.50 (0.90-2.90) K/uL Frederick # (Auto) 1.00 H (0.00-0.90) K/UL Eos # (Auto) 0.09 (0.00-0.50) K/uL Baso # (Auto) 0.02 (0.00-0.30) K/uL Abs Immat Gran (auto) 0.07 (0.00-0.30) K/uL Imm/Tot Granulo (auto) 0.6 % Sodium 140 (135-149) mmol/L Potassium 3.9 (3.6-5.1) mmol/L Chloride 99 (96-114) mmol/L Carbon Dioxide 31 (20-32) mmol/L Anion Gap 10 (7-15) mEq/L BUN 15 (5-24) mg/dL Creatinine 1.1 (0.5-1.5) mg/dL Estimated Creat Clear 94.83 Estimated GFR 84 ml/min Glucose 120 H (60-115) mg/dL Calcium 9.1 (8.4-10.6) mg/dL Total Bilirubin 0.3 (0.1-1.5) mg/dL AST 27 (12-35) U/L ALT 35 (4-50) U/L Alkaline Phosphatase 84 (40-150) U/L Total Protein 7.8 (6.0-8.3) g/dL Albumin 4.5 (3.3-5.0) g/dL Urine Color Yellow (Yellow) Urine Appearance Clear (Clear) Urine pH 5.5 (5.0-8.5) Ur Specific [place] >= 1.030 (1.000-1.030) Urine Protein 2+ A (Negative) Urine Glucose (UA) Negative (Negative) Urine Ketones Negative (Negative) Urine Blood 3+ A (Negative) Urine Nitrite Negative (Negative) Urine Bilirubin Negative (Negative) Urine Urobilinogen 0.2 (0.2-1.0) Ur Leukocyte Esterase Negative (Negative) Urine RBC 5-10 A (0-2) Urine WBC 2-5 (0-5) Ur Squamous Epith Cells Few (None-Few) Urine Bacteria Few A (None) Imaging Data CT scan - abdomen: Attestation: I have reviewed the pertinent imaging results. My impression: 4 mm stone noted right UVJ. Positive hydro Radiologist's impression: Lower chest: Unremarkable. Liver: Normal in size and attenuation. No suspicious masses. Gallbladder and bile ducts: No stones or inflammation. No biliary dilatation. Pancreas: Unremarkable. No mass or inflammation. Spleen: Normal in size. No masses. Adrenal glands: Normal in size. No nodules. Kidneys: Punctate nonobstructing left nephrolith. 3 mm stone at the right uterovesicular junction with associated mild proximal hydroureteronephrosis. No left-sided hydronephrosis. No suspicious mass. GI tract: Unremarkable. Normal in caliber. No sign of mass or inflammation. Normal appendix. Vasculature: Abdominal aorta is normal in caliber. Lymph nodes: No lymphadenopathy. Peritoneum/Abdominal Wall: Small fat-containing umbilical hernia. No free air or significant free fluid. Pelvis: Unremarkable. No pelvic masses. Bones: Unremarkable for age. IMPRESSION: 3 mm stone at the right ureterovesicular junction with associated mild proximal hydroureteronephrosis. Discharge Plan Discharge Clinical Impression: Colic, ureteral, History of nephrolithiasis Patient Disposition: Home, Self-Care Condition: Improved Additional Instructions: 1. Increase her fluids and strain urine. 2. For pain: Toradol 10 mg every 8 hours as needed. For pain not relieved by Toradol, may use [place] which is a combination medication of the narcotic called hydrocodone and Tylenol. Please to not use any other sedating medicines with [place] as it is already sedating itself. May also cause constipation so suggest using a stool softener. Tonight in our InStent meds machine I substituted Percocet, 4 tablets. Apologies that we are out of [place] in the machine. I did send additional [place] to the pharmacy. 3. For nausea: Zofran is ordered for you. 4. To expedite passage of the stone, we gave you a medicine called Flomax tonight. Have sent that to your pharmacy. If you end up passing the stone tomorrow you do not have to pick it up. Return for worsening symptoms, persistent vomiting, fever and as needed. If you do not passed the stone in the next few days please contact your primary clinic so that they can arrange urology consultation for you Prescriptions: New tamsulosin 0.4 mg capsule 0.4 mg PO DAILY Qty: 14 0RF hydrocodone-acetaminophen 5-325 mg tablet 1 tab PO Q4-6H PRN (Reason: pain) Qty: 10 0RF Rx Instructions: 1-2 tabs every 4-6 hours as needed for discomfort. No Action cabergoline 0.5 mg tablet 1.5 mg PO DAILY Patient Comments: TAKE 3 TABLETS BY MOUTH EVERY MORNING Follow Up/Referrals: Provider,Not a Local [Non-Staff, Family Practice] Stand Alone Forms: MyHealth Info Instructions
[2025-08-06 23:09] LABS: Hematocrit* 40.5 % (37.0-53.0); Hemoglobin* 13.2 gm/dL (13.5-17.5); Immature Granulocytes Abs Auto 0.07 K/uL (0.00-0.30); Immature Granulocytes Pct Auto 0.6 %; Lymphocytes Absolute Auto 2.50 K/uL (0.90-2.90); Mean Corpuscular HGB Conc 33 gm/dL (32-36); Mean Corpuscular Hemoglobin 27 pg (26-34); Mean Corpuscular Volume 83 fL (80-100); RDW Coefficient of Variation % 14.4 % (11.5-15.5); Red Blood Count* 4.91 m/uL (4.30-5.90); White Blood Count* 10.88 K/uL (4.50-11.00)
[2025-08-06] MEDS: MORPHINE 4 MG/ML INJ IVP (23:13)
[2025-08-06] MEDS: ONDANSETRON 2 MG/ML inj 4 MG IVP (23:13)
[2025-08-06] MEDS: 0.9 % SODIUM CHLORIDE 500 ML 500 ML IV (23:13)
[2025-08-06 23:19] LABS: Slide Review Reflex No
[2025-08-06 23:21] LABS: Chloride* 99 mmol/L (96-114)
[2025-08-06 23:22] LABS: Albumin* 4.5 g/dL (3.3-5.0); Potassium* 3.9 mmol/L (3.6-5.1); Sodium* 140 mmol/L (135-149)
[2025-08-06 23:24] LABS: Blood Urea Nitrogen* 15 mg/dL (5-24); Creatinine* 1.1 mg/dL (0.5-1.5); Est. Creatinine Clearance* 94.83; Estimated Glomerular Filt Rate 84 ml/min
[2025-08-06 23:25] LABS: Alanine Aminotransferase* 35 U/L (4-50); Alkaline Phosphatase* 84 U/L (40-150); Anion Gap 10 mEq/L (7-15); Aspartate Amino Transferase* 27 U/L (12-35); Bilirubin Total* 0.3 mg/dL (0.1-1.5); Calcium* 9.1 mg/dL (8.4-10.6); Carbon Dioxide* 31 mmol/L (20-32); Glucose* 120 mg/dL (60-115); Total Protein* 7.8 g/dL (6.0-8.3)
--- OUTSIDE RECORDS SUMMARY | 2025-08-07 00:10 | XMS_ITS | Patient Health Record ---
Author Organization [facility] Address [address] [place] [address] Phone [phone] Care Team Providers Care Can Filling Room Sweeper Name Role Phone Khushi Whitfield Primary Care Provider Unavailalbaro MCNEIL MD, VITO Unavailable Giuseppe Martinez Unavailable Unavailable Dominic Guy, [facility] Unavailable Allergies No Known Allergies Reason For Referral No Information Medications Medication SIG (Take, Route, Frequency, Duration) Notes Start Date End Date Diagnosis (ICD Code) Status Flonase 50 MCG/DOSE Suspension 2 spray i n each nostril Nasally Once a day; Duration: 30 days 5Chronic rhinitis (ICD_10 - J31.0)Not-TakingDeep Sea Nasal [place] 0.65 % SolutionNasal; Duration: 30 DaysActiveCabergoline 0.5 [...] Sta tus Risk Notes Problem Chronic rhinitis (38008301) Chronic rhinitis (J31.0) Added On:04/04/2025 Active confirmed ProblemSensorineural hearing loss, bilateral (104096454)Bilateral sensorineural hearing loss (H90.3) Added On:04/04/2025 ActiveconfirmedProblemPituitary tumor (379186387)Pituitary tumor (D49.7) Added On:04/04/2025 ActiveconfirmedProblemPituitary adenoma (366868619)Pituitary adenoma (D35.2) Added On:05/14/2025 Activeconfirmed Vital Signs Vital Sign Value Notes Appt Date Height-cm 185.42 cm 05/11/2025Weight-kg108.86 kg05/11/20250717Yajggj63 in05/11/20255012Wifygq232 lbs 05/11/2025BMI31.66 kg/m205/11/2025 Procedures Procedure Date Ordered Date Performed Result Body Sit e Surgery 05/02/2025 04/27/2025 04-27-25 Encounters Date Time Type Facility Location Provider Diagnosis 04/04/20 02:45 PM New Patient Visit Complex (07052) [facility] [place] [address] [facility] [address] [place] [address] VITO KHABIE Pituitary tumor D49.7 ; Chronic rhinitis J31.0 and Bilateral sensorineural hearing loss H90.3 04/04/20 03:00 PM Office Visit [facility] [place] [address] [facility] [address] [place] [address] Van Buttinaro Pituitary tumor D49.7 and Bilateral sensorineural hearing loss H90.3 04/27/20 08:45 AM Office Visit [facility] [address] [place], [place] [phone] VITO KIERSTENABIE 502:15 PMOffice VisitEar Nose and [facility] [place] [address]GMUJMO KHABIE Pituitary tumor D49.7 Assessments Encounter Date [...] now. Francisco just see him back as elubbv9304/04/2025hronic rhinitis (ICD-10 - J31.0) Patient has a [...] Start Date Coverage End Date [place]AM[place] [address] [address] [place] [address] [id number] El Flores Self - patient is the insured
--- OUTSIDE RECORDS SUMMARY | 2025-08-07 00:10 | XMS_ITS | Clinical Summary ---
Author Organization [facility] Address [address], [place] [address] Care Team Providers Care Ap Operator Name Role Phone Unassigned, Provider Primary Care Provider Unava ilable Source Comments You are receiving this document as you are listed as the primary care provider,follow-up provider, or the patient has been referred to you for consultation.This is in compliance with the Medicare andMartin Memorial Hospitalcaid EHR Incentive Program,which states Providers who transition their patient to another setting of careor provider of care or refers their patient to another provider of care shouldprovide summary care record for each transition of care or referral. HealthPartUnified Social Allergies No known active allergies Medications No [...] SignReadingTime TakenCommentsBlood Pressure--Pulse--Temperature-- Respiratory Rate--Oxygen Saturation--Inhaled Oxygen Concentration--Qqcxzo569.3 kg (230 lb)07/01/2016 3:34 PM ZGJMftvve972.4 cm (6' 1)07/01/2016 3:34 PM RESAW CARRIAGE OPERATOR Body Mass Index30.34108/31/2015 3:34 PM RESAW CARRIAGE OPERATOR Plan of Treatment Health MaintenanceDue DateLast DoneCommentsColon Cancer Screening Plan Due 1978Hep C Screening (Preventive Services)1978HIV Screening (Preventive Services)1994Adult Preventive Visit1996DTaP/Tdap/Td Vaccine (1 - Tdap)1997HepB Vaccine (1)09/15/19972760Mwgchuyqhqv46/31/2014 COVID-19 Vaccine (1 - season)2025Influenza Vaccine (#1)2025 [...] Flores TypeRelation to PatientDate of BirthPhone Billing AddressPersonal/WbsswhIhjb33/31/1981 ([employer]) [address] [place], [place] [id number] Care Teams Team MemberRelationshipSpecialtyStart DateEnd Date Unassigned, Provider [address] [place] [address] PCP - General10/25/00
--- OUTSIDE RECORDS SUMMARY | 2025-08-07 00:10 | XMS_ITS | Clinical Summary ---
Author Organization [facility] Address [address] [place] [address] Care Team Providers Care Family Centered Specialist Name Role Phone Emily Deluca MD Unavailable [phone] Giuseppe Martinez MD Unavailable [phone] Khushi Whitfield DO Primary Care Provider [phone] Allergies No known active allergies Medications MedicationSigDispense QuantityRefillsLast FilledStart DateEnd DateStatus loratadine/pseudoephedrine (ALLERGY RELIEF D ORAL) Take 1 Tablet by mouth once daily.Active fluticasone (50 mcg per actuation) nasal solution (FLONASE) Inhale 1 Shepherd in both nostrils once daily.Active sodium chloride [...] Problems ProblemNoted DateDiagnosed DatePituitary tumor04/27/2025History of primary crdjznvthmukyhxswpd58/27/2019 Overview (05/12/2019): s/p left superior parathyroidectomy 09/2018 Hypogonadism male07/29/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)07/29/2017 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 3 month postop surveillance. Review 08/02/25 ANW, 04/26/25 [facility] MRI. All other comparisons were done @ [facility] and are on AV.)08/02/2025 6:40 AM TOW MOTOR MECHANIC - 08/02/2025 11:59 PM CSTHospital Encounter [facility] [address] [place], [place] [phone] Riana Martin NP S/P transsphenoidal hypophysectomy (HC)08/02/20254938Nrbqru39/06/2025Telephone [facility] [address] [place] [phone] Emily Deluca MD Prior Authorization (testosterone 1% (12.5mg/1.25g) (ANDROGEL) 12.5 mg/ 1.25 gram (1 %) glpm GEL PANOT NEEDED)07/16/2025Refill [facility] [address] [place] [phone] Emily Deluca MD Refill Request (testosterone 1% (12.5mg/1.25g) 12.5 mg/ 1.25 gram (1 %) glpm GEL/cabergoline (DOSTINEX) 0.5 mg tablet)06/13/2025 10:30 AM CDTOrders Only [facility] [address] [place] [address] [place] <No scans attached>06/13/20257475Mrdpbe47/28/2025Telephone [facility] [address] [place] [phone] Emily Deluca MD Dngjbey2006/07/2025Orders Only [facility] [address] [place] [phone] Emily Deluca MD <No scans attached>06/07/2025Telephone [facility] [address] [place] [phone] Emily Deluca MD 06/06/2025 1:30 PM CDTOrders Only [facility] [address] [place] [address] [place], [place] Lab06/06/20251824Lxhscq03/14/2025 1:00 PM CDTOffice Visit [facility] [address] [facility] [address] [place] [address] Riana Martin NP Post-op (Clinic Appt S/p 04/27/25 Endoscopic transnasal hypophysectomy; possible lumbar drain and fat graft. 1 month f/u)05/28/2025 7:30 AM CDTOffice Visit [facility] [address] [place] [phone] Emily Deluca MD Follow Up (MEN1, Hyperprolactinemia, Macroprolactinoma, Hypogonadism Male, H/O Primary Hyperparathyroidism, Vitamin D Deficiency)05/28/20255794Muviea96/26/2025 Orders Only [facility] Scanner 1 scan: (1-Ord) ENT SPECIALTY CARE, NASAL ENDOSCOPY, 5005/11/2025Orders Only [facility] Scanner 1 scan: (1-Ord) ENT SPEC CARE, NASAL ENDOSCOPY, 5005/09/2025Telephone [facility] [address] [phone] Giuseppe Martinez MD Formfrom Last 3 Months Immunizations ImmunizationAdministration DatesNext YmmWRY3210/21/1995Td (Age >=7 Years) 04/02/2005Td, Preservative Free (age >= 7 Years)04/02/2005Tdap09/20/2018 Family History Medical HistoryRelationNameCommentsHypertensionFatherOtherMaternal Grandfather bipolar diseaseRheum arthritisMotherOtherOtherleukemia in an auntDiabetes Paternal GrandmotherRelationNameStatusCommentsFatherMaternal GrandfatherMother OtherPaternal Grandmother Social History Tobacco UseTypesPacks/DayYears UsedDateSmoking Tobacco: NeverPassive Smoke Exposure: NeverSmokeless Tobacco: Never Tobacco Cessation:Counseling Given: Not Answered Alcohol UseStandard Drinks/WeekCommentsNot Currently0 (1 standard drink = 0.6 oz pure alcohol)nonePHQ-2AnswerDate RecordedPHQ-2 Pndjy196Social ConnectionsAnswerDate RecordedDo you often feel lonely or isolated from those around you?lcohol UseAnswerDate RecordedHow often do you have a drink containing alcohol?verage Number of DrinksNot on file 08/02/2025Frequency of Binge DrinkingNot on file08/02/2025Financial Resource StrainAnswerDate RecordedDifficulty of Paying Living Wfblsjch108/27/2025 Difficulty of Paying Living ExpensesNot on file02/09/2025Food [...] Last Filed Vital Signs Vital SignReadingTime TakenCommentsBlood Ypljajel298/7408/02/2025 8:13 AM TOW MOTOR MECHANIC Bzset623208/02/2025 8:13 AM YFZEszuqcvbmhp25.6 ??C (97.9 ??F)08/02/2025 8:13 AM CSTRespiratory Xehu186508/02/2025 8:13 AM CSTOxygen Znpgccjkkg46%08/02/2025 8:13 AM CSTInhaled Oxygen Concentration--Eznjpf756.3 kg (245 lb 6.4 oz)08/02/2025 8:13 AM UYVPdvgpn665.4 cm (6' 1)08/02/2025 8:13 AM CSTBody Mass Index32.38 08/02/2025 8:13 AM TOW MOTOR MECHANIC Plan of Treatment DateTypeDepartmentCare Team (Latest Contact Info)Rlaiiclekiv28/13/2026 7:30 AM CDTOffice Visit [facility] [address] [place] [phone] Emily Deluca MD [address] [place] [address] Health MaintenanceDue DateLast DoneCommentsHIV for age 15-Hepatitis [...] LotGraft Dural 1x1in Duramatrix Suturable Bovine - [id number] Implanted:Qty: 1 on 04/27/2025 by Giuseppe Martinez MD at [facility] Rcduofpqlmzulzpsije63/31/0055UGW40 / / [id number] Procedures Procedure NamePriorityDate/TimeAssociated DiagnosisCommentsMR HEAD BRAIN PITUITARY ZKNUcczbnr86/18/2025 7:57 AM TOW MOTOR MECHANIC S/P transsphenoidal hypophysectomy (HC) SODIUMAdd On06/13/2025 10:24 AM CDT Hypernatremia CORTISOL BQQOXUxujwwc43/29/2025 10:24 AM CDT Macroprolactinoma (HC) Medication management SODIUMAdd On06/06/2025 1:37 PM CDT Macroprolactinoma (HC) Medication management CORTISOL BUNQZLsrfvbi14/22/2025 1:37 PM CDT Macroprolactinoma (HC) Medication management BASIC METABOLIC MZGDYSlnhiih19/13/2025 8:17 AM CDT Macroprolactinoma (HC) Medication management TGHWKUGNECwcslcx20/13/2025 8:17 AM CDT Hyperprolactinemia (HC) Macroprolactinoma (HC) Medication management PSEDohschw82/13/2025 8:17 AM CDT Macroprolactinoma (HC) TESTOSTERONE,IXESBZsglqkb74/13/2025 8:17 AM CDT Macroprolactinoma (HC) Hypogonadism male Medication management T4,BKPBFelpkco83/13/2025 8:17 AM CDT Macroprolactinoma (HC) SCAN-IERSBSQYB34/26/2025 12:00 AM CDT SCAN-ZVDFDSFYB96/26/2025 12:00 AM CDT LIPID JFBBXTbqvakm79/24/2022 8:15 AM CDT Hypogonadism male Macroprolactinoma (HC) Medication management from Last 3 Months or Most Recently Relevant to Health Maintenance Results * MR HEAD BRAIN PITUITARY WWO (08/02/2025 7:57 AM TOW MOTOR MECHANIC)Anatomical Region LateralityModalityBRAIN, HEADMagnetic ResonanceSpecimen (Source)Anatomical Location / LateralityCollection Method / VolumeCollection TimeReceived Time 08/02/2025 11:54 AM TOW MOTOR MECHANIC Impressions 08/02/2025 11:54 AM TOW MOTOR MECHANIC 1. Stable postop changes of transsphenoidal approach [...] AM (Electronically Signed) Narrative 08/02/2025 11:54 AM TOW MOTOR MECHANIC For Patients: As a result of the [...] made in March 2025 by the reagent customer service administrator. Reference Range: For 8 a.m.(7-9 a.m.) Specimen: 4.0-22.0 Reference Range: For 4 p.m.(3-5 p.m.) Specimen: 3.0-17.0 ??* Please interpret above results accordingly * Specimen (Source)Anatomical Location / LateralityCollection Method / Volume Collection TimeReceived TimeBloodBLOOD SPECIMEN / UnknownQuest Collect / Unknown 06/13/2025 10:24 AM CDT1 10:24 AM CDT Narrative Authorizing ProviderResult TypeResult StatusEmily Deluca MDCHEMISTRY Final ResultPerforming OrganizationAddressCity/State/ZIP CodePhone Number [facility] [address] [place] [address], * SODIUM (06/13/2025 10:24 AM CDT) Only the most recent of2 resultswithin the time period is included. ComponentValueRef RangeTest MethodAnalysis TimePerformed AtPathologist Signature AIDRKK336244 - 146 mmol/L1 2:16 AM CDTQUEST DIAGNOSTICSSpecimen (Source)Anatomical Location / LateralityCollection Method / VolumeCollection TimeReceived TimeBloodBLOOD SPECIMEN / UnknownQuest Collect / Xgzozla6906/13/2025 10:24 AM CDT1 10:24 AM CDT Narrative Authorizing ProviderResult TypeResult StatusmEily Deluca MDCHEMISTRY Final ResultPerforming OrganizationAddressty/State/ZIP CodePhone Number [facility] [address] [place] [address], [place] [phone] * TSH (05/28/2025 8:17 AM CDT)ComponentValueRef RangeTest MethodAnalysis Time Performed AtPathologist SignatureTSH0.790.40 - 4.50 mIU/L1 6:03 AM CDTQUEST DIAGNOSTICSSpecimen (Source)Anatomical Location / Laterality Collection Method / VolumeCollection TimeReceived TimeBloodBLOOD SPECIMEN / UnknownQuest Collect / Rcgvggs8405/28/2025 8:17 AM CDT1 8:17 AM CDT Narrative Authorizing ProviderResult TypeResult StatusEmily Deluca MDCHEMISTRY Final ResultPerforming OrganizationAddressCity/State/ZIP CodePhone Number [facility] [address] [place] [address], [place] [phone] * T4,FREE (05/28/2025 8:17 AM CDT)ComponentValueRef RangeTest MethodAnalysis TimePerformed AtPathologist SignatureT4, FREE1.00.8 - 1.8 ng/dL05/29/2025 6:03 AM CDTQUEST DIAGNOSTICSSpecimen (Source)Anatomical Location / Laterality Collection Method / VolumeCollection TimeReceived TimeBloodBLOOD SPECIMEN / UnknownQuest Collect / Xwupemn5305/28/2025 8:17 AM CDT1 8:17 AM CDT Narrative Authorizing ProviderResult TypeResult StatusEmily Deluca MDCHEMISTRY Final ResultPerforming OrganizationAddressty/State/ZIP CodePhone Number [facility] [address] [place] [address], * (ABNORMAL) TESTOSTERONE,TOTAL (05/28/2025 8:17 AM CDT)ComponentValueRef Range Test MethodAnalysis TimePerformed AtPathologist SignatureTESTOSTERONE, TOTAL, MS47(L)250 - 1100 ng/dL06/01/2025 1:43 PM CDTQUEST DIAGNOSTICSComment: Men with clinically significant hypogonadal symptoms and testosterone values repeatedly in the range of the 200-300 ng/dL or less, may benefit from testosterone treatment after adequate risk and benefits counseling. For additional information, please refer to https://education.WaveConnex/faq/TotalTestosteroneLCMSMS (This link is being provided for informational/educational purposes only.) (Note) This test was developed and its analytical performance characteristics have been determined by [employer]. It has not been cleared or approved by the FDA. This assay has been validated pursuant to the CLIA regulations and is used for clinical purposes. F med [facility] [address] [address],[address] [facility] [address] Kalen Pereira MD, PhD Specimen (Source)Anatomical Location / LateralityCollection Method / Volume Collection TimeReceived TimeBloodBLOOD SPECIMEN / UnknownQuest Collect / Unknown 05/28/2025 8:17 AM CDT1 8:17 AM CDT Narrative Authorizing ProviderResult TypeResult StatusEmily Deluca MDCHEMISTRY Final ResultPerforming OrganizationAddressCity/State/ZIP CodePhone Number [facility] [address] [phone], * (ABNORMAL) PROLACTIN (05/28/2025 8:17 AM CDT)ComponentValueRef RangeTest MethodAnalysis TimePerformed AtPathologist WswqvcqfnSFHVNNXNN69069.0(H)2.0 - 18.0 ng/mL05/30/2025 4:13 PM CDTQUEST DIAGNOSTICSComment: Results verified by repeat analysis on dilution. Specimen (Source)Anatomical Location / LateralityCollection Method / Volume Collection TimeReceived TimeBloodBLOOD SPECIMEN / UnknownQuest Collect / Unknown 05/28/2025 8:17 AM CDT1 8:17 AM CDT Narrative Authorizing ProviderResult TypeResult StatusEmily Deluca MDSEND OUTS Final ResultPerforming OrganizationAddressCity/State/ZIP CodePhone Number [facility] [address] [place] [address], * (ABNORMAL) BASIC METABOLIC PANEL (05/28/2025 8:17 AM CDT)ComponentValueRef RangeTest MethodAnalysis TimePerformed AtPathologist LvijkzholIOLYUH306019 - 146 mmol/L1 4:24 AM CDTQUEST DIAGNOSTICSPOTASSIUM4.13.5 - 5.3 mmol/L 05/29/2025 4:24 AM CDTQUEST DIAGNOSTICSCARBON BFAUYHE8330 - 32 mmol/L 05/29/2025 4:24 AM CDTQUEST JPLHVZDSKQBOVCOYGH552(H)65 - 99 mg/dL05/29/2025 4:24 AM CDTQUEST DIAGNOSTICSComment: [...] reference range. ? EGFR95> OR = 60 mL/min/1.43t66905/29/2025 4:24 AM CDTQUEST DIAGNOSTICSUREA NITROGEN (BUN)127 - 25 mg/dL05/29/2025 4:24 AM CDTQUEST DIAGNOSTICSELECTROLYTE NWVROEM60 - 17 mmol/L (calc)05/29/2025 4:24 AM CDTQUEST DQCXVIYHSAWVSRZNRRE32882 - 110 mmol/L1 4:24 AM CDTQUEST DIAGNOSTICSSpecimen (Source)Anatomical Location / LateralityCollection Method / VolumeCollection TimeReceived TimeBlood BLOOD SPECIMEN / UnknownQuest Collect / Llilppx3805/28/2025 8:17 AM CDT1 8:17 AM CDT Narrative Authorizing ProviderResult TypeResult StatusAnne Macy Deluca MDCHEMISTRY Final ResultPerforming OrganizationAddressCity/State/ZIP CodePhone Number [facility] [place] [phone], * SCAN-ENDOSCOPY (05/11/2025 12:00 AM CDT) Narrative Authorizing ProviderResult TypeResult StatusScannerOTHERFinal Result * SCAN-ENDOSCOPY (05/11/2025 12:00 AM CDT) Narrative Authorizing ProviderResult TypeResult StatusScannerOTHERFinal Result * (ABNORMAL) LIPID PANEL (04/08/2022 8:15 AM CDT)ComponentValueRef RangeTest MethodAnalysis TimePerformed AtPathologist SignatureCHOLESTEROL,YSMUL264869 - 199 mg/dL04/08/2022 5:22 PM [facility] HEEOAAUSBBHRB548(H)<150 mg/dL04/08/2022 5:22 PM [facility]- CENTRAL LABORATORYHDL IHPTSJBPUOV78(L)>40 mg/dL04/08/2022 5:22 PM [facility] LAB[facility]-CENTRAL LABORATORYNON-HDL MAGXJTJVBQL760(H)<145 mg/dl 04/08/2022 5:22 PM [facility]-CENTRAL LABORATORYCHOL/HDL RATIO5.70(H)<4.50004/08/2022 5:22 PM [facility]-CENTRAL LABORATORYLDL IPVNZKTTQBA39<=130 mg/dL04/08/2022 5:22 PM [facility]OR[facility]-CENTRAL LABORATORYVLDL LAYYUNUFSPX66(H)<=30 mg/dL04/08/2022 5:22 PM [facility]ENTRAL LABORATORYPROVIDER ORDERED STATUSRANDOM 04/08/2022 5:22 PM [facility]-CENTRAL LABORATORYSpecimen (Source)Anatomical Location / LateralityCollection Method / VolumeCollection TimeReceived TimeBloodBLOOD SPECIMEN / UnknownVenipuncture / Dpjiuul2404/08/2022 8:15 AM CDT04/08/2022 8:21 AM CDT Narrative Authorizing ProviderResult TypeResult StatusEmily Deluca MDCHEMISTRY Final ResultPerforming OrganizationAddressCity/State/ZIP CodePhone Number [facility] [address] [place] [address], from Last 3 Months or Most Recently Relevant to Health Maintenance Insurance * Guarantor: MARIBETH Mcintosh TypeRelation to PatientDate of PhoneBilling AddressMed[facility]/VxttRexsq64/29/1971 [place] [address] Advance Directives * Full Code (Latest Code Status on File) Date ActivatedDate InactivatedComments04/27/2025 7:02 AM04/30/2025 3:57 PMQuestion AnswerCommentsCode Status Discussion:* Reviewed Preferences * Full Code Date ActivatedDate InactivatedComments09/28/2018 5:34 AM09/28/2018 1:21 PMQuestion AnswerCommentsCode Status Discussion:* Discussed Care Teams Team MemberRelationshipSpecialtyStart DateEnd Date Nahid, Khushi DO Ariella [address] [place] [address] [facility] - [facility] Emily Deluca MD Endocrinology04/08/15 Giuseppe Martinez MD [address] [address] Surgery - Neurological12/20/23
[2025-08-07 00:27] LABS: Appearance Urine Clear (Clear)
[2025-08-07] MEDS: TAMSULOSIN HCL 0.4 MG CAPSULE PO (01:02)
== END 2025-08-07 01:55 | disposition home or self-care (01) ==
PROVIDERS: Emergency Provider Family Medicine; PCP Family Medicine
DX: N23 Unspecified renal colic (principal)
CPT/HCPCS: 36415; 74176; 80053; 81001; 85025; 87086; 96374; 96375; 99284; A9270; J1171; J1885; J2270; J2405; J7030